=== PATIENT | female | born 1970 ===

== ENCOUNTER 2021-03-11 09:19 | Emergency (ER) | payer OTHER ==
[~2021-03-11] VITALS: Ht 157.5 cm; Wt 68.9 kg
[~2021-03-11 09:19] MED LIST: CELEBREX100 MG PO
[2021-03-11] MEDS ORDERED: SYNTHROID100 MCG PO (09:34)
[2021-03-11] MEDS ORDERED: PROGESTERO50 MG/1 M1 IM (09:35)
== END 2021-03-11 11:10 | disposition home or self-care (01) ==
LOC: ER 09:19
DX: N93.8 Other specified abnormal uterine and vaginal bleeding (principal)